=== PATIENT | female | born 1995 | race Caucasian/White ===

== ENCOUNTER 2016-11-29 13:24 | Emergency (ER) | payer MEDICAID | END 2016-11-29 15:13 | disposition home or self-care (01) | DX: J02.0 Streptococcal pharyngitis (principal); F17.200 Nicotine dependence, unspecified, uncomplicated ==

== ENCOUNTER 2017-10-15 19:18 | Outpatient (CLI) | payer SELFPAY | END 2017-10-15 19:19 | disposition EMS.NT | LOC: EMS 19:18 | PROVIDERS: ATTEND Surgery | DX: Z04.1 Encounter for examination and observation following transport accident (principal); V43.53XA Car driver injured in collision with pick-up truck in traffic accident, initial encounter; Y92.413 State road as the place of occurrence of the external cause ==

== ENCOUNTER 2019-06-19 08:12 | Emergency (ER) | payer OTHER ==
[2019-06-19 08:20] VITALS: BP 118/80
--- NOTE | 2019-06-19 08:38 | ED Physician Documentation ---
History of Present Illness - Stated complaint Stated Complaint: SORE THROAT - Chief complaint Chief Complaint: Heent - History obtained from History obtained from: Patient - History of Present Illness Timing: Yesterday (Sorethroat since yesterday, no F/C. Mild rhinorrhea.) Review of Systems Ten Systems: 10 systems reviewed and negative Constitutional: denies: Fever, Chills, Sweats Nose: reports: Rhinorrhea / runny nose Throat: denies: Sore throat Respiratory: denies: Cough PD PAST MEDICAL HISTORY - Past Medical History Past Medical History: Yes GI: Hepatitis - Past Surgical History Past Surgical History: No - Present Medications Home Medications: Ambulatory Orders Medication Instructions Recorded Confirmed RX: Penicillin V Potassium 500 mg PO QID #40 tablet 11/29/16 RX: traMADol [Ultram] 50 mg PO Q4-6H PRN #10 tablet 11/29/16 - Allergies Allergies/Adverse Reactions: Allergies Allergy/AdvReac Type Severity Reaction Status Date / Time cephalexin monohydrate * Allergy Nausea Verified 06/19/19 08:20 [From Keflex] Sulfa (Sulfonamide Allergy Hives Verified 06/19/19 08:20 Antibiotics) - Social History Does the pt smoke?: Yes Smoking Status: Current every day smoker PD ED PE NORMAL - Vitals Vital signs reviewed: Yes - General General: Alert and oriented X 3, No acute distress - HEENT HEENT: Other (mild tonsillar redness, no swelling, no LAD, no exudates) - Neck Neck: Supple, no meningeal sign, No bony TTP - Derm Derm: No rash - Neuro Neuro: Alert and oriented X 3, Normal speech Results - Vitals Vitals: Vital Signs - 24 hr 06/19/19 08:17 Temperature 37 C Heart Rate 95 Respiratory 18 Rate Blood Pressure 118/80 O2 Saturation 100 Oxygen O2 Source Room air - Labs Labs: Laboratory Tests 06/19/19 08:23 Group A Strep Rapid Negative Departure - Departure Disposition: Home, Self Care Clinical Impression: Viral pharyngitis Condition: Good Instructions: ED Pharyngitis Viral Comments: Ibuprofen as needed for pain, return for new or worsening symptoms.
== END 2019-06-19 09:12 | disposition home or self-care (01) ==
LOC: ED 08:12
DX: J02.8 Acute pharyngitis due to other specified organisms (principal); B97.89 Other viral agents as the cause of diseases classified elsewhere; F17.200 Nicotine dependence, unspecified, uncomplicated
CPT/HCPCS: 87070; 87430; 99282; 99283